=== PATIENT | male | born 1970 | race Hispanic/Latino ===

== ENCOUNTER 2024-05-26 11:09 | Inpatient (IN) | payer SELFPAY ==
[2024-05-26] MEDS ORDERED: Lidocaine 1% PF 5 ML VIAL ONE ×3 (11:17→17:41)
[2024-05-26] MEDS ORDERED: Boostrix 0.5 ML (Tdap) VIAL (>/=7 yrs of age) ONE (11:17)
[2024-05-26] MEDS ORDERED: Lidocaine 1% MPF 2 ML VIAL ONE (11:23)
[2024-05-26] MEDS ORDERED: Ibuprofen 800 MG TAB ONE (11:54)
[2024-05-26] MEDS ORDERED: Acetaminophen 500 MG TAB ONE (11:54)
[2024-05-26] MEDS ORDERED: CEFAZOLIN 2 GM VIAL ONE ×2 (12:19→17:52)
[2024-05-26] MEDS ORDERED: Sodium Chloride 0.9% 100 ML ONE (12:19)
[2024-05-26 12:43] LABS: #Basophils 0.05 10x3/uL (0.0-0.2); %Basophils 0.9 % (0.0-1.0); %Eosinophils 1.8 % (0.0-10.0); %Lymphocytes 26.1 % (21.0-51.0); %Monocytes 7.5 % (0.0-10.0); %Neutrophils 63.3 % (42.0-75.0); Hematocrit 43.5 % (42.0-52.0); Hemoglobin 15.1 g/dL (14.0-18.0); Mean Corpuscular HGB CONC 34.7 g/dL (32.0-36.0); Mean Corpuscular Hemoglobin 30.7 pg (27.0-31.0); Mean Corpuscular Volume 88.4 fL (78.0-98.0); Mean Platelet Volume 9.8 fL (7.4-10.4); Platelet Count 231 10x3/uL (130-400); RBC Distribution Width 13.5 % (11.5-14.5); Red Blood Cell (RBC) Count 4.92 mill/uL (4.70-6.10)
[2024-05-26 13:49] LABS: ALT (SGPT) 18 U/L (Less than 45); AST (SGOT) 22 U/L (11-34); Albumin 3.9 g/dL (3.1-4.5); Alkaline Phosphatase 62 U/L (40-110); Anion Gap 10 mmol/L (10-20); BUN (Urea Nitrogen) 14 mg/dL (8.4-25.7); Bilirubin, Total 0.4 mg/dL (0.3-1.2); Calc. Creatinine Clearance 0 mL/min (70-130); Carbon Dioxide 25 mmol/L (22-29); Chloride 106 mmol/L (98-107); Estimated GFR 85; Globulin 3.1 g/dL (2.4-3.5); Glucose 109 mg/dL (70-105); Potassium 4.4 mmol/L (3.5-5.1); Sodium 137 mmol/L (136-145)
[2024-05-26 15:55] VITALS: TEMP 98.3
[2024-05-26 16:00] VITALS: BMI 26.6
[2024-05-26] MEDS ORDERED: Bacitracin Zinc Ointment 30 gm TUBE ONE (17:39)
[2024-05-26] MEDS ORDERED: Mineral Oil Sterile 10 ML VIAL ONE (17:40)
[2024-05-26] MEDS ORDERED: Thrombin 5000 UNITS/5 ML VIAL ONE (17:40)
[2024-05-26] MEDS ORDERED: Bupivacaine PF 0.5% 30 ML VIAL ONE (17:40)
[2024-05-26] MEDS ORDERED: PROPOFOL 20 ML ONE (17:41)
[2024-05-26] MEDS ORDERED: Dexamethasone 20 MG/5 ML VIAL ONE (17:41)
[2024-05-26] MEDS ORDERED: Rocuronium Bromide 10 MG/ML (10ML VIAL) ONE (17:41)
[2024-05-26] MEDS ORDERED: Ondansetron PF 4 MG/2 ML Vial ONE (17:41)
[2024-05-26] MEDS ORDERED: fentaNYL PF 100 MCG/2 ML SYRINGE ONE ×2 (17:41→18:52)
[2024-05-26] MEDS ORDERED: Midazolam HCl 2 mg/2 ml Vial ONE (18:20)
[2024-05-26] MEDS ORDERED: SUCCINYLCHOLINE/SOD CL,ISO/PF 200 MG/10 ML SYRINGE FS ONE (18:25)
[2024-05-26] MEDS ORDERED: Ketorolac Tromethamine 30 MG (1 mL) VIAL ONE (19:13)
[2024-05-26] MEDS ORDERED: SUGAMMADEX SODIUM 200 MG/2 ML VIAL ONE (19:14)
[2024-05-26] MEDS ORDERED: Promethazine HCl 25 MG/ML VIAL IM PRN (19:18)
[2024-05-26] MEDS ORDERED: Ondansetron HCl/PF 4 MG/2 ML Vial IVP PRN (19:18)
[2024-05-26 20:50] VITALS: BP 124/84
== END 2024-05-26 23:05 | disposition home or self-care (01) | DRG 906 ==
LOC: ERS 11:09 → SURG B 13:15
PROVIDERS: ADMIT Orthopaedic Surgery Hand Surgery; ATTEND Orthopaedic Surgery Hand Surgery
PROC: 0KBD0ZZ Excision of Left Hand Muscle, Open Approach (ICD-10-PCS; principal; 2024-05-26)
PROC: 0HQQXZZ Repair Finger Nail, External Approach (ICD-10-PCS; 2024-05-26)
PROC: 0HRGX73 Replacement of Left Hand Skin with Autologous Tissue Substitute, Full Thickness, External Approach (ICD-10-PCS; 2024-05-26)
PROC: 0HBEXZZ Excision of Left Lower Arm Skin, External Approach (ICD-10-PCS; 2024-05-26)
DX: S67.191A Crushing injury of left index finger, initial encounter (principal); S61.311A Laceration without foreign body of left index finger with damage to nail, initial encounter; X58.XXXA Exposure to other specified factors, initial encounter
CPT/HCPCS: 36415; 80053; 85025; 90471; 90715; 96374; A6258; J0665; J1100; J1885; J2250; J2405; J2704